=== PATIENT | female | born 2005 | race African-American/Black ===

== ENCOUNTER 2024-12-29 13:20 | Emergency (ER) | payer MEDICAID ==
[~2024-12-29] VITALS: Ht 152.4 cm; Wt 50.0 kg
[2024-12-29 13:24] VITALS: O2SAT 99
[2024-12-29] MEDS: ONDANSETRON HCL 4MG/2ML INJ IV STA (14:04)
[2024-12-29] MEDS: PANTOPRAZOLE SODIUM 40 MG/VIAL IV ONE (14:05)
[2024-12-29] MEDS: KETOROLAC 30MG/ML VIAL IV STA (14:05)
[2024-12-29] MEDS: SODIUM CHLORIDE 0.9% 1,000 ML IV ONE (14:06)
[2024-12-29 14:14] LABS: BASOPHILS % 0.4 % (0.0-2.0); DIFFERENTIAL COMMENT 0; EOSINOPHILS % 2.3 % (0.0-5.0); HEMATOCRIT. 40.1 % (36.0-48.0); HEMOGLOBIN. 13.4 g/dL (12.0-16.0); LYMPHOCYTES % 19.4 % (20.0-50.0); MEAN CORPUSCULAR HEMOGLOBIN 26.7 pg (28.0-32.0); MEAN CORPUSCULAR HGB CONC 33.5 g/dL (31.0-37.0); MEAN CORPUSCULAR VOLUME 79.8 fL (81.0-99.0); MEAN PLATELET VOLUME 9.2 fl (7.4-10.4); MONOCYTES % 8.4 % (2.0-8.0); NEUTROPHILS % 69.5 % (40.0-76.0); PLATELET 239 x1000/uL (130-400); RED BLOOD CELL COUNT 5.02 mill/uL (4.2-5.4); WHITE BLOOD COUNT 8.1 x1000/uL (4.5-11.0)
[2024-12-29 14:21] LABS: CHLORIDE 109 mEq/L (98-107); INR 1.1; POTASSIUM 3.7 mEq/L (3.5-5.1); PROTHROMBIN TIME 11.3 sec (9.6-11.0); SODIUM 140 mEq/L (136-145)
[2024-12-29 14:22] LABS: CARBON DIOXIDE 22 mEq/L (21-32)
[2024-12-29 14:23] LABS: CALCIUM 9.4 mg/dL (8.7-10.4)
[2024-12-29 14:27] LABS: CREATININE 0.8 mg/dL (0.6-1.0); GLUCOSE 91 mg/dL (70-105)
[2024-12-29 14:28] LABS: ETHANOL BLOOD < 10 mg/dL (<10); UREA NITROGEN BLOOD 10 mg/dL (9-23)
[2024-12-29 14:29] LABS: ALANINE AMINOTRANSFERASE 19 IU/L (10-49); ALBUMIN 4.5 g/dL (3.2-4.8); ASPARTATE AMINOTRANSFERASE 18 IU/L (<34)
[2024-12-29 14:30] LABS: BILIRUBIN DIRECT 0.2 mg/dL (<=3.0); BILIRUBIN TOTAL 0.7 mg/dL (0.1-1.0); PROTEIN TOTAL 7.2 g/dL (6.0-8.3)
[2024-12-29 14:34] LABS: HCG SCREEN NEGATIVE
[2024-12-29 16:27] VITALS: BP 107/71; PULSE 77; RESP 22; TEMP 36.7; O2SAT 99
== END 2024-12-29 16:38 | disposition home or self-care (01) ==
LOC: ER 13:20
DX: R11.2 Nausea with vomiting, unspecified (principal); R19.7 Diarrhea, unspecified
CPT/HCPCS: 80076; 80048; 80320; 84703; 83690; 85025; 85610; 36415; 96365; 96375; 99284; J1885; J2405; J2470; J7030; Z7610 ×2; G0480